=== PATIENT | female | born 1960 ===

== ENCOUNTER 2018-05-12 16:21 | Inpatient (IN) ==
--- NOTE | 2018-05-12 16:53 | ED ---
HPI General Chief Complaint: Psychiatric Symptoms Stated Complaint: Pysch Eval/VSC[employer] Time Seen by Provider: 05/12/18 16:43 Source: patient and RN notes reviewed Mode of arrival: ambulatory Limitations: no limitations History of Present Illness HPI Narrative: 58-year-old female presents to the emergency department for psychiatric evaluation. Patient was seen by her psychiatric nurse practitioner at the [facility] today and was placed under Tadeo act. The patient states she has been having anxiety and panic attacks she is concerned that she might hurt herself. She states that while having one on Friday, she got about hurting herself with knives. She got about looking up on the Internet of which artery to cut. The patient reports history of asthma. She denies any alcohol, tobacco , drug use. Moderate severity. MD complaint: Reports feels depressed and other (anxiety) Onset (ago): day(s) (3) Duration: intermittent Relieving factors: none Exacerbating factors: none Associated psychiatric symptoms: Reports none Associated symptoms: Reports denies other symptoms Treatments prior to arrival: Reports placed on mental health hold Related Data Home Medications Medication Instructions Recorded Confirmed No Known Home Medications 05/12/18 05/12/18 Allergies Allergy/AdvReac Type Severity Reaction Status Date / Time adhesive Allergy Severe RASH Verified 05/12/18 16:35 Sulfa (Sulfonamide Allergy Severe Swelling Verified 05/12/18 16:35 Antibiotics) of Lip/Tongue/Throat Review of Systems ROS: all other systems reviewed are negative PMFSH Social History Social History Substance History: No History of Abuse Smoking Status: Current every day smoker Tobacco Type: Cigarettes How Often Do You Have a Drink Containing Alcohol: Never Recent Travel in [facility] within the Last 8 Weeks: No Recent Out of Country Travel within the Last 8 Weeks: No Exam Narrative Exam Narrative: GENERAL: Well-nourished, well-developed female patient, afebrile. SKIN: Focused skin assessment warm/dry. HEAD: Normocephalic. Atraumatic. EYES: No scleral icterus. No injection or drainage. NECK: Supple, trachea midline. No JVD or lymphadenopathy. CARDIOVASCULAR: Regular rate and rhythm without murmurs, gallops, or rubs. RESPIRATORY: Breath sounds equal bilaterally. No accessory muscle use. Lung sounds are clear to auscultation. GASTROINTESTINAL: Abdomen soft, non-tender, nondistended. MUSCULOSKELETAL: No cyanosis, or edema. PSYCHIATRIC: No delusional thought processes. No hallucinations. Course Initial Documented Vital Signs Temperature 98.6 F 05/12/18 16:36 Pulse Rate 95 H 05/12/18 16:36 Respiratory Rate 18 05/12/18 16:36 Blood Pressure 151/66 H 05/12/18 16:36 Last Documented Vital Signs Temperature 98.6 F 05/12/18 16:36 Pulse Rate 95 H 05/12/18 16:36 Respiratory Rate 18 05/12/18 16:36 Blood Pressure 151/66 H 05/12/18 16:36 Medical Decision Making MDM Narrative Medical decision making narrative: 50-year-old female presents to the emergency department under Tadeo act by her psychiatric nurse practitioner. Patient has no medical complaints at this time. CBC shows slight leukocytosis 12.3, likely stress reaction. CMP shows no acute abnormality. Creatinine is 1.02. TSH is 1.690. Urine drug screen is pending. Alcohol level is less than 3. Patient is medically cleared for psychiatric screening and disposition. Medical Screen Exam Complete: Yes Emergency Medical Condition: Yes Lab Data Result diagrams: 05/12/18 16:48 05/12/18 16:48 Lab Results 05/12/18 05/12/18 Range/Units 16:48 16:48 WBC 12.3 H (4.0-11.0) th/mm3 RBC 5.43 H (4.00-5.30) mil/mm3 Hgb 16.8 H (11.6-15.3) gm/dL Hct 50.8 H (35.0-46.0) % MCV 93.5 (80.0-100.0) fL MCH 30.9 (27.0-34.0) pg MCHC 33.0 (32.0-36.0) % RDW 14.6 (11.6-17.2) % Plt Count 267 (150-450) th/mm3 MPV 8.8 (7.0-11.0) fL Neut % (Auto) 66.4 (16.0-70.0) % Lymph % (Auto) 27.3 (9.0-44.0) % [place] % (Auto) 5.2 (0.0-8.0) % Eos % (Auto) 0.5 (0.0-4.0) % Baso % (Auto) 0.6 (0.0-2.0) % Neut # (Auto) 8.2 H (1.8-7.7) th/mm3 Lymph # (Auto) 3.4 (1.0-4.8) th/mm3 Stan[place] # (Auto) 0.6 (0.0-0.9) th/mm3 Eos # (Auto) 0.1 (0.0-0.4) th/mm3 Baso # (Auto) 0.1 (0.0-0.2) th/mm3 WBC Differential . Differential Comment Auto diff final Sodium 138 (136-145) meq/L Potassium 4.5 (3.5-5.1) meq/L Chloride 103 (98-107) meq/L Carbon Dioxide 26.7 (21.0-32.0) meq/L Anion Gap 8 (5-15) meq/L BUN 16 (7-18) mg/dL Creatinine 1.02 H (0.50-1.00) mg/dL Estimated GFR 56 L (>89) mL/min Random Glucose 100 (74-106) mg/dL Calcium 8.8 (8.5-10.1) mg/dL Total Bilirubin 0.3 (0.2-1.0) mg/dL AST 21 (15-37) U/L ALT 31 (10-53) U/L Alkaline Phosphatase 105 (45-117) U/L Total Protein 8.0 (6.4-8.2) g/dL Albumin 4.0 (3.4-5.0) g/dL TSH 1.690 (0.358-3.740) uIU/mL Serum Alcohol Less than 3 (0-5) mg/dL Discharge Plan Discharge Disposition Patient Disposition: 30 Still Patient Physicians Team ED Provider: Arash Kevin ED Midlevel Provider: Ashlee Rosas Primary Care Provider: [facility] /Orders / Referrals /Forms Prescriptions: No Action No Known Home Medications RF: 0 Status ED Status: Medically Cleared
[2018-05-12 17:22] LABS: Baso # (Auto) 0.1 th/mm3 (0.0-0.2); Baso % (Auto) 0.6 % (0.0-2.0); Eos # (Auto) 0.1 th/mm3 (0.0-0.4); Eos % (Auto) 0.5 % (0.0-4.0); Hematocrit 50.8 % (35.0-46.0); Hemoglobin 16.8 gm/dL (11.6-15.3); Lymph # (Auto) 3.4 th/mm3 (1.0-4.8); Lymph % (Auto) 27.3 % (9.0-44.0); Mean Corpuscular Hemoglobin 30.9 pg (27.0-34.0); Mean Corpuscular Volume 93.5 fL (80.0-100.0); Mean Platelet Volume 8.8 fL (7.0-11.0); Mono # (Auto) 0.6 th/mm3 (0.0-0.9); Mono % (Auto) 5.2 % (0.0-8.0); Neut # (Auto) 8.2 th/mm3 (1.8-7.7); Neut % (Auto) 66.4 % (16.0-70.0); Platelet Count 267 th/mm3 (150-450); Red Blood Count 5.43 mil/mm3 (4.00-5.30); Red Cell Distribution Width 14.6 % (11.6-17.2); White Blood Count 12.3 th/mm3 (4.0-11.0)
[2018-05-12 17:40] LABS: Alanine Aminotransferase 31 U/L (10-53); Anion Gap 8 meq/L (5-15); Aspartate Aminotransferase 21 U/L (15-37); Blood Urea Nitrogen 16 mg/dL (7-18); Calcium 8.8 mg/dL (8.5-10.1); Carbon Dioxide 26.7 meq/L (21.0-32.0); Chloride 103 meq/L (98-107); Glomerular Filtration Rate 56 mL/min (>89); Glucose,Random 100 mg/dL (74-106); Potassium 4.5 meq/L (3.5-5.1); Sodium 138 meq/L (136-145)
[2018-05-12 17:48] LABS: Alkaline Phosphatase 105 U/L (45-117)
[2018-05-12 18:15] LABS: Amphetamine Screen,Urine Neg (Neg); Barbiturate Screen,Urine Neg (Neg); Cannabinoid Screen,Urine Neg (Neg); Cocaine Screen,Urine Neg (Neg)
[2018-05-12 18:27] LABS: Opiate Screen,Urine Neg (Neg)
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
[2018-05-13] MEDS ORDERED: LORazepam 0.5 MG Tablet PO PRN (10:12)
[2018-05-13] MEDS ORDERED: Aluminum/Magnesium/Simethacone Susp 30 ML UDC PO PRN (10:12)
[2018-05-14] MEDS ORDERED: LORazepam 1 MG Tablet PO PRN (08:41)
[2018-05-14] MEDS ORDERED: Venlafaxine XR 37.5 MG Capsule PO ONE (09:00)
[2018-05-14 09:22] LABS: Calcium 9.1 mg/dL (8.5-10.1); Potassium 4.6 meq/L (3.5-5.1)
[2018-05-14 09:52] LABS: Chol/HDL Ratio 4.65 Ratio; HDL Cholesterol 41.9 mg/dL (40.0-60.0)
[2018-05-14 12:23] LABS: Hemoglobin A1c 5.7 % (4.3-6.0)
--- NOTE | 2018-05-14 12:32 | ECG ---
Date Performed: 05/14/2018 Time Performed: 11:04:12 PTAGE: 58 years EKG: Sinus rhythm NORMAL ECG PREVIOUS TRACING : 04/13/2013 10.28 No significant change from previous tracing noted. DOCTOR: Abel Chery Interpretating Date/Time 05/14/2018 12:30:07
--- NOTE | 2018-05-14 14:41 | P.CON ---
History of Present Illness Primary Care Provider: [facility] History of Present Illness: 58-year-old female admitted with Tadeo act for suicidal thoughts. Medicine was consulted for patient's history of elevated blood pressures and asthma. Patient reports in regards to her blood pressure she is had transiently elevated readings in her physician's office. Says that they occasionally reached the 140s systolic. Has not been started on blood pressure medications. Denies any hypertensive urgency-like symptoms including but not limited to chest pain visual disturbances shortness of breath lower extremity edema, nausea vomiting. Patient reports that she has a history of asthma and takes an as needed inhaler and/or nebulizer treatments. Says that she has not had any nighttime awakenings in the past month due to her asthma, says that it is well controlled. Review of Systems All other systems reviewed negative except as [facility] - History History Provided By: Patient - Medical History Medical History: Medical History (Last Reviewed 05/14/18 @ 14:46 by Arturo Nicole MD) Asthma Depression Hypertension - Family History Family History: Family History (Last Updated 05/14/18 @ 14:47 by Arturo Nicole MD) Other Patient denies medical problems - Social History I have reviewed the patient's Social History: Yes - Tobacco History Second Hand Smoke Exposure: Yes Tobacco Use In Past 30 Days: Yes Smoking Status: Current every day smoker Tobacco Type: Cigarettes - Alcohol History How Often Do You Have a Drink Containing Alcohol: 2 to 4 times a month - Substance Use History Substance History: No History of Abuse - Travel History Recent Travel in the [place] Within the Last 8 Weeks: No Recent Travel Out of the Country Within the Last 8 Weeks: No - Immunization History Tetanus Immunization: <5 Years Hx Influenza Vaccine This Season: Yes Medications and Allergies Active Medications: Active Medications Al Hydrox/Mg Hydrox/Simethicone (Mag-Al Plus Susp Liq) 30 ml PO Q6H PRN PRN Reason: DYSPEPSIA Al Hydroxide/Mg Hydroxide (Milk Of Magnesia Liq) 30 ml PO Q12H PRN PRN Reason: Mild Constipation Diphenhydramine HCl (Benadryl) 50 mg PO HS ROXANN Lorazepam (Ativan) 1 mg PO Q6H PRN PRN Reason: ANXIETY Sennosides (Senokot) 17.2 mg PO Q12H PRN PRN Reason: Moderate Constipation Venlafaxine HCl (Effexor Xr) 75 mg PO DAILY ROXANN Allergies Allergy/AdvReac Type Severity Reaction Status Date / Time adhesive Allergy Severe RASH Verified 05/12/18 16:35 Sulfa (Sulfonamide Allergy Severe Swelling Verified 05/12/18 16:35 Antibiotics) of Lip/Tongue/Throat Home Medications Medication Instructions Recorded Confirmed Type No Known Home Medications 05/12/18 05/12/18 History Physical Exam Vital signs: Vital Signs 05/13/18 18:00 05/14/18 05:40 Temperature 98.6 F 97.9 F Pulse Rate 70 65 Respiratory Rate 17 16 Blood Pressure 137/72 159/65 H Pulse Oximetry 97 100 Intake & Output 05/13/18 05/14/18 05/14/18 18:59 06:59 18:59 Intake Total 360 / 360 Balance 360 / 360 Weight 96.36 kg 96.7 kg Intake: Oral 360 / 360 Other: Weight On Admission 96.36 kg Narrative: VS: afebrile GENERAL: Well-nourished female, no acute distress SKIN: Warm and dry. EYES: Pupils equal and round. No scleral icterus. No injection or drainage. ENT: No nasal bleeding or discharge. Mucous membranes pink and moist. CARDIOVASCULAR: Regular rate and rhythm. no murmurs RESPIRATORY: No accessory muscle use. Clear to auscultation. Breath sounds equal bilaterally. GASTROINTESTINAL: Abdomen ND Extremities: No clubbing, cyanosis, or edema. No obvious deformities. MUSCULOSKELETAL: adequate muscle bulk and tone for age and habitus NEUROLOGICAL: Awake and alert. No obvious cranial nerve deficits. No facial droop nor slurred speech noted. PSYCHIATRIC: Appropriate mood and affect; insight and judgment normal. Assessment and Plan - Plan 50-year-old female admitted under Tadeo act for suicidal thoughts. Medicine blood pressures and history of asthma Elevated blood pressure Technically the patient does not have a diagnosis of hypertension since 2 elevated readings in the same situation/setting are needed to make this diagnosis and during her stay here blood pressures seem to be normal to transiently elevated to a mild extent. I would recommend holding off on starting any medications at this time given the recent bouts of panic attacks that the patient has had. Unless her pressures remain elevated in a sustained fashion, would recommend for patient to have her PCP follow-up blood pressures outpatient. Mild intermittent asthma -Continue home inhaler as needed for shortness of breath/wheezing Mood disorders For psychiatry to follow and manage Thank you for consulting us on the care of this patient. Contact us if blood pressures continue to remain elevated greater than 140/90. Will likely start lisinopril low-dose if that is the case.
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
[2018-05-15] MEDS: Venlafaxine XR 75 MG Capsule PO SCH (10:54)
[2018-05-15] MEDS: Docusate Sodium 100 MG Capsule PO SCH ×2 (15:54→21:27)
--- NOTE | 2018-05-15 17:58 | P.PNPSY ---
Subjective Remarks: Patient seen for follow-up, chart reviewed. Discussion with nursing staff reported that patient was not to be irritable this morning, somewhat paranoid with her medications, slept well reported occasional voice calling her name. Patient was found in blade on unit noted B, cooperative. Patient states that she woke up at 4 AM due to noise on the unit but had been sleeping without disturbance prior to that. Patient reports eating and drinking well no difficulty with bowel movement. Patient reports tolerating medications well. Patient reports feeling "fine" denying suicide ideations at this time. He denies any IV 8 patient states recalling a voice calling her name on occasion. Review of Systems All other systems reviewed negative except as stated in HPI Gastrointestinal: Reports constipation Mental Status Examination Appearance: Appropriate Consciousness: Alert Orientation: x4 Motor Activity: Normal gait Speech: Unremarkable Language: Adequate Fund of Knowledge: Adequate Memory: Unremarkable Mood: Sad, Anxious Affect: Sad Thought Process & Associations: Intact, Logical, Goal directed Thought Content: Appropriate Hallucination Type: None Delusion Type: None Suicidal Ideation: Yes (Denies at this time) Suicidal Plan: No Suicidal Intention: No Homicidal Ideation: No Homicidal Plan: No Homicidal Intention: No Insight: Fair Judgment: Adequate Assessment and Plan - Assessment (1) Major depressive disorder, recurrent episode with anxious distress Code(s): F33.9 - Major depressive disorder, recurrent, unspecified Status: Acute (2) PTSD (post-traumatic stress disorder) Code(s): F43.10 - Post-traumatic stress disorder, unspecified Status: Acute - Plan Plan: Patient reporting having improvement in mood, denying any suicide ideations and tolerated medications well. We will continue current treatment. We will add stool softener due to reported constipation. We will continue to monitor mood and behavior. Discharge planning a progress. Justification for Continued Inpatient Stay: At risk of further decompensation at lower level care.
[2018-05-16] MEDS: Docusate Sodium 100 MG Capsule PO SCH ×2 (08:49→21:08)
[2018-05-16] MEDS: Venlafaxine XR 75 MG Capsule PO SCH (08:49)
--- NOTE | 2018-05-16 15:32 | P.PNPSY ---
Subjective Remarks: Reviewed electronic medical records and discussed case with staff. Follow-up was conducted in the exam room with KEELY Estrella present. Her nurse reports that she has been denying suicide and compliant with her medications. She does note some paranoid behavior however, she has had no behavioral disturbances. Patient states that she feels that her mood has been lifting. Her affect is euthymic today. States she is sleeping and eating well and denies any side effects from her medication. Mental Status Examination Appearance: Appropriate Consciousness: Alert Orientation: x4 Motor Activity: Normal gait Speech: Unremarkable Language: Adequate Fund of Knowledge: Adequate Memory: Unremarkable Mood: Sad, Anxious Affect: Sad Thought Process & Associations: Intact, Logical, Goal directed Thought Content: Appropriate Hallucination Type: None Delusion Type: None Suicidal Ideation: Yes Suicidal Plan: Yes Suicidal Intention: No Homicidal Ideation: No Homicidal Plan: No Homicidal Intention: No Insight: Fair Judgment: Adequate Assessment and Plan - Assessment (1) Major depressive disorder, recurrent episode with anxious distress Code(s): F33.9 - Major depressive disorder, recurrent, unspecified Status: Acute - Plan Plan: Patient will be reevaluated Friday by the attending psychiatrist. Continue with current treatment plan. Justification for Continued Inpatient Stay: Moving this patient to a less restrictive environment would likely result in decompensation.
[2018-05-17] MEDS: Docusate Sodium 100 MG Capsule PO SCH ×2 (08:30→20:39)
[2018-05-17] MEDS: Venlafaxine XR 75 MG Capsule PO SCH (08:30)
--- NOTE | 2018-05-17 15:21 | P.PNPSY ---
Subjective Remarks: Reviewed electronic medical records and discussed case with staff. Follow-up was conducted in the patient's room. She states that she is feeling alot better. Conflict with roommate who is loud and keeping her awake. Her blood pressure today was 164/77, she is currently under the care of the [facility] and has an appointment to re-check her blood pressure before starting any medications. Denies any SI/HI. Review of Systems All other systems reviewed negative except as stated in HPI Mental Status Examination Appearance: Appropriate Consciousness: Alert Orientation: x4 Motor Activity: Normal gait Speech: Unremarkable Language: Adequate Fund of Knowledge: Adequate Memory: Unremarkable Mood: Sad, Anxious Affect: Sad Thought Process & Associations: Intact, Logical, Goal directed Thought Content: Appropriate Hallucination Type: None Delusion Type: None Suicidal Ideation: No Suicidal Plan: No Suicidal Intention: No Homicidal Ideation: No Homicidal Plan: No Homicidal Intention: No Insight: Adequate Judgment: Adequate Assessment and Plan - Assessment (1) Major depressive disorder, recurrent episode with anxious distress Code(s): F33.9 - Major depressive disorder, recurrent, unspecified Status: Acute - Plan Plan: Patient will be reevaluated Friday by the attending psychiatrist. Continue with current treatment plan. Justification for Continued Inpatient Stay: Moving patient to a less restrictive environment may result in her decompensation.
[2018-05-18 05:04] VITALS: BP 150/67; PULSE 67; RESP 16; TEMP 97.4; O2SAT 98
[2018-05-18] MEDS: Docusate Sodium 100 MG Capsule PO SCH (08:32)
[2018-05-18] MEDS: Venlafaxine XR 75 MG Capsule PO SCH (08:32)
--- NOTE | 2018-05-18 15:18 | P.TTN ---
- Patient Problems Problems: 1. Discharge planning 2. Medication compliance 3. Knowledge deficit 4. Lack of coping skills - Progress Toward Goals Provider Present: Dr. Sudha Clayton, Dr. Saulo Sanches Provider Input: 05/18/18: Discharge today with follow up with the [facility]. Nurse(s) Present: Saturnino RN Nurse Input: 05/18/18: Med Compliant, Appropriate with Staff, Treatment Cooperative. Denies Suicidal Ideations. Psychiatric Counselors Present: Fredy Falcon Jr., [facility], Berenice Solares, [facility] Psychiatric Therapist Input: 05/18/18: Discharge today with follow up with the [facility]. Group Spec/RT/OT/SINCLAIR Present: SILVER Pablo, Wilman Ramos, OT Group Spec/RT/OT/SINCLAIR Input: 05/18/18: Patient attends select group activities. Pleasant and cooperative. Social with peers. - Discharge Plan 05/18/18: Discharge home with follow up at the [facility]. - Documentation Scribe: Magali Shelby Teaching Recipient: Patient
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
== END 2018-05-18 15:50 | disposition home or self-care (01) ==
LOC: NEDAMB 16:21 → NEDA 05-13 10:12 → H260 05-13 11:02
PROVIDERS: ADMIT Student in an Organized Health Care Education/Training Program; ATTEND Student in an Organized Health Care Education/Training Program